=== PATIENT | female | born 1935 | race Caucasian/White ===

== ENCOUNTER → 2020-01-25 | Emergency (ER) | payer MEDICARE, OTHER ==
[~2020-01-25] VITALS: Ht 170.2 cm; Wt 63.5 kg
== END ==
LOC: ED 09:23
DX: S61.412A Laceration without foreign body of left hand, initial encounter (principal); S00.03XA Contusion of scalp, initial encounter; W01.198A Fall on same level from slipping, tripping and stumbling with subsequent striking against other object, initial encounter; Z86.73 Personal history of transient ischemic attack (TIA), and cerebral infarction without residual deficits
CPT/HCPCS: 12002; 70450; 99283-25